=== PATIENT | male | born 1960 | race Caucasian/White ===

== ENCOUNTER 2020-05-12 01:24 | Emergency (ER) | payer OTHER | END 2020-05-12 02:26 | disposition home or self-care (01) | LOC: ERS 01:24 | DX: S00.03XA Contusion of scalp, initial encounter (principal); I10 Essential (primary) hypertension; W18.30XA Fall on same level, unspecified, initial encounter; Y92.002 Bathroom of unspecified non-institutional (private) residence as the place of occurrence of the external cause | CPT/HCPCS: 70450; 72125 ==